=== PATIENT | female | born 1940 | race Caucasian/White ===

== ENCOUNTER 2018-09-13 14:45 | Inpatient (IN) | payer MEDICARE | END 2018-09-17 16:20 | disposition home or self-care (01) | LOC: ER 14:45 → ORTHO 4S 09-16 09:50 → ED HOLD 20:14 | DX: J44.1 Chronic obstructive pulmonary disease with (acute) exacerbation (principal); I13.0 Hypertensive heart and chronic kidney disease with heart failure and stage 1 through stage 4 chronic kidney disease, or unspecified chronic kidney disease ==

== ENCOUNTER 2018-09-25 15:59 | Inpatient (IN) | payer MEDICARE | END 2018-10-08 15:25 | LOC: ED HOLD 09-26 14:34 → ORTHO 4S 09-30 10:15 → PCU 3S 10-02 16:40 → ER 15:59 → ORTHO 4S 09-26 14:54 → PCU 3S 10-03 21:15 | DX: A41.9 Sepsis, unspecified organism (principal); J18.9 Pneumonia, unspecified organism; J44.1 Chronic obstructive pulmonary disease with (acute) exacerbation; N17.9 Acute kidney failure, unspecified; J20.9 Acute bronchitis, unspecified; Z72.0 Tobacco use; I12.9 Hypertensive chronic kidney disease with stage 1 through stage 4 chronic kidney disease, or unspecified chronic kidney disease; N18.3 Chronic kidney disease, stage 3 (moderate) ==

== ENCOUNTER 2018-10-14 20:24 | Inpatient (IN) | payer MEDICARE ==
[~2018-10-14] VITALS: Ht 157.5 cm; Wt 54.5 kg
[~2018-10-14 20:24] MED LIST: ALPR0.5T9 PO; BENZ-49 PO; DILT30TA5 PO; HYDR-3973 PO; MEGE400O2 PO; NICO-631 TD; PRED10TA23 PO; SERT50TA10 PO; TIOT18CA3
[2018-10-14] MEDS ORDERED: piperacillin/tazo 4.5gm/100ml 100 ML IV SCH (21:10)
[2018-10-14] MEDS ORDERED: vancomycin/NS 1 GM ADD-VANTAGE 250 ML IV ONE (21:10)
[2018-10-14] MEDS ORDERED: piperacillin/tazo 4.5gm/100ml 100 ML IV ONE (21:14)
[2018-10-14 21:37] LABS: BASOPHILS # (AUTO) 0.1 X10'3 (0-0.2); BASOPHILS % (AUTO) 0.5 % (0-1); EOSINOPHILS % (AUTO) 0.1 % (0-6); HEMATOCRIT 31.5 % (35.0-45.0); HEMOGLOBIN 10.3 g/dl (12.0-16.0); LYMPHOCYTES # (AUTO) 0.2 X10'3 (1.1-4.8); LYMPHOCYTES % (AUTO) 1.8 % (21-51); MEAN CORPUSCULAR HEMOGLOBIN 25.5 PG (27.0-31.0); MEAN CORPUSCULAR HGB CONC 32.6 g/dL (33.0-36.5); MEAN CORPUSCULAR VOLUME 78.1 FL (78-98); MEAN PLATELET VOLUME 7.7 FL (7.4-10.4); MONOCYTES # (AUTO) 0.4 X10'3 (0-0.9); MONOCYTES % (AUTO) 3.1 % (2-12); NEUTROPHILS # (AUTO) 12.7 X10'3 (1.8-7.7); NEUTROPHILS % (AUTO) 94.5 % (42-75); PLATELET COUNT 247 X10'3 (140-440); RED BLOOD COUNT 4.04 X10'6 (4.20-5.60); RED CELL DISTRIBUTION WIDTH 17.4 % (11.5-14.5); WHITE BLOOD COUNT 13.4 X10'3 (4.5-11.0)
[2018-10-14 21:46] LABS: ALANINE AMINOTRANSFERASE 26 U/L (12-78); ALBUMIN 1.9 G/DL (3.4-5.0); ALBUMIN/GLOBULIN RATIO 0.4 (1.1-1.5); ALKALINE PHOSPHATASE 79 IU/L (46-116); ANION GAP 7 (8-16); ASPARTATE AMINO TRANSFERASE 16 U/L (10-37); BILIRUBIN,TOTAL 0.2 MG/DL (0.1-1.0); BLOOD UREA NITROGEN 57 MG/DL (7-18); BUN/CREATININE RATIO 14.3 (6.6-38.0); CALCIUM 8.8 MG/DL (8.5-10.1); CHLORIDE 100 MMOL/L (99-107); CREATININE 3.99 MG/DL (0.40-0.90); GLUCOSE 106 MG/DL (70-104); POTASSIUM 5.2 MMOL/L (3.5-5.1); SODIUM 136 MMOL/L (135-145); TOTAL CARBON DIOXIDE 29.1 MMOL/L (24-32); TOTAL PROTEIN 6.3 G/DL (6.4-8.2); eGFR 11 ML/MIN
[2018-10-14 21:52] LABS: PARTIAL THROMBOPLASTIN TIME 35 SECONDS (22-32)
[2018-10-14] MEDS ORDERED: sodium polystyrene sulfonate 15gm/60ml oral suspension PO ONE (21:55)
[2018-10-14] MEDS ORDERED: normal saline 1000ML IV soln IVB ONE (21:55)
[2018-10-14 23:06] LABS: ABG BASE EXCESS 2.2 mmol/L (-2.0-3.0); ABG HCO3 27.5 mmol/L (22.0-26.0); ABG OXYGEN SATURATION 94.3 % (95-98); ABG PCO2 (T) 45.8 mmHg (32.0-45.0); ABG PH (T) 7.395 (7.350-7.450); ABG PO2 (T) 74.3 mmHg (83-108); ALLEN'S TEST Positive; FCOHb 0.3 % (0.5-1.5); FLOW 3 L/min; FMetHb 0.1 % (0.3-1.12); FO2Hb 93.9 % (94-100); PATIENT TEMPERATURE 36.8; RESPIRATORY RATE (OBSERVED) 16 b/min; TOTAL HEMOGLOBIN 9.5 G/dl (12.0-16.0)
[2018-10-14] MEDS ORDERED: DOXY100T19 PO (23:20)
[2018-10-14] MEDS ORDERED: METH-603 PO (23:20)
[2018-10-14] MEDS ORDERED: AMLO5TAB16 PO (23:20)
[2018-10-15] MEDS ORDERED: benzonatate 100mg capsule PO PRN (00:10)
[2018-10-15] MEDS ORDERED: ondansetron/PF 4mg/2ml inj IV PRN (00:15)
[2018-10-15] MEDS ORDERED: docusate sod 100mg capsule PO PRN (00:15)
[2018-10-15] MEDS ORDERED: magnesium Cl slow-release 64mg tablet PO PRN (00:15)
[2018-10-15] MEDS ORDERED: HYDROmorphone 1 mg/ml syringe IV PRN (00:15)
[2018-10-15] MEDS ORDERED: potassium Cl 40MEQ/NS 500ml 500 ML IV PRN ×2 (00:15)
[2018-10-15] MEDS ORDERED: acetaminophen 325mg tablet PO PRN (00:15)
[2018-10-15] MEDS ORDERED: HYDROmorphone inj. 0.5 MG/0.5 ML DISP.SYRIN IV PRN (00:15)
[2018-10-15] MEDS ORDERED: magnesium 4gm in 100ml NS 100 ML IV PRN (00:15)
[2018-10-15] MEDS ORDERED: cefepime 1GM/NS ADD-VANTAGE 100 ML IV SCH (00:15)
[2018-10-15] MEDS ORDERED: potassium Cl 20 mEq SR tablet PO PRN ×2 (00:15)
[2018-10-15] MEDS ORDERED: magnesium 2GM in 50ml NS 50 ML IV PRN (00:15)
[2018-10-15] MEDS ORDERED: mag hydrox/Alum hydrox/simeth 30ml oral suspension PO PRN (00:15)
--- NOTE | 2018-10-15 00:20 | NUR ---
PT NOT TOLERATING OXY MASK, PLACED PT ON NASAL CANULA AT 6 LPM, WILL CONTINUE TO MONITOR O2 LEVELS AND REAPPLY MASK NEEDED.
[2018-10-15] MEDS ORDERED: morphine 4 MG/ML inj SYRINge IV PRN (01:00)
--- NOTE | 2018-10-15 01:20 | NUR ---
Patient in room [facility]. I have received report from Vince Carver and had the opportunity to ask questions and will assume patient care upon arrival to the floor. Addendum: 10/15/18 at 0245 by Carrie Velazquez RN Amended: Links added.
--- NOTE | 2018-10-15 01:24 | NUR ---
REPORT CALLED TO RADAMES RN, I REVIEWED THE PATIENTS CONDITION, SHE AGREES TO ACCEPT THE PATIENT. PATIENT AND FAMILY MEMBER TO GO UPSTAIRS WITH THE PATIENT AFTER SHE RETURNS FROM CT.
[2018-10-15 02:00] VITALS: BP 125/67
--- NOTE | 2018-10-15 02:00 | NUR ---
pt arrived to the floor and clothes removed put into a gown and colostomy burped and positioned to comfort.
--- NOTE | 2018-10-15 02:52 | NUR ---
pt resting eyes closed without changes.
--- NOTE | 2018-10-15 04:10 | NUR ---
Dr Alcantar up to talk to daughter about noting a bowel obstruction on her ct and need for ng tube. Daughter told him she wanted to wait until sheb could talk with her Dad regarding this as her Mom is taking on off and not wanting stuff done. tele dc'd
--- NOTE | 2018-10-15 05:15 | NUR ---
pt denied need for pain medication at this time. daughter called her father said he would come in to decide on the ng tube and what pt wants for her care.
[2018-10-15] MEDS: HYDROcodone/acetaminophen 10/325mg tab PO SCH ×6 (06:00→23:58)
--- NOTE | 2018-10-15 06:30 | NUR ---
PT & DAUGHTER SAID SHE WAS IN PAIN. SHE WANTED THE MORPHINE MEDICATED FOR THIS . THEN CAME IN AND HEARD WHAT DR SINCLAIR HAD SAID ABOUT BOWEL OBSTRUCTION NEEDING AN NG TUBE. & PT STATING SHE DID NOT WANT THAT AND TAKING THE 02 OFF. AND DAUGHTER BOTH HAVE STATED THEY WOULD LIKE TO TAKE TO THE DR ABOUT KEEPING HER COMFORTABLE.
--- NOTE | 2018-10-15 06:30 | NUR ---
Patient in room [facility]. I have received report from Carrie and had the opportunity to ask questions and assume patient care. Addendum: 10/15/18 at 1315 by Brittany Guan RN Amended: Links added.
--- NOTE | 2018-10-15 07:01 | NUR ---
Problems reprioritized. Patient report given, questions answered & plan of care reviewed with MARGOT RICARDO AND SHE IS AWARE PT REFUSED VITALS AT THIS TIME. AND FAMILY WOULD LIKE TALK WITH THE DR ABOUT KEEPING HER COMFORTABLE. .
[2018-10-15] MEDS: ipratropium 0.5 MG/2.5ML nebule IH SCH ×4 (07:07→20:24)
[2018-10-15] MEDS: levalbuterol 0.63mg/3ml nebule IH SCH ×4 (07:07→20:24)
[2018-10-15] MEDS: megestrol acetate 400mg/10ml UD oral suspension PO SCH (08:00)
[2018-10-15] MEDS: enoxaparin 30mg/0.3ml syringe SQ SCH (08:00)
[2018-10-15] MEDS ORDERED: methadone 10mg tablet PO SCH (08:00)
[2018-10-15] MEDS: K and/or MAG REPLACEMENT MC SCH (08:08)
[2018-10-15] MEDS: methylPREDNISolone sod succ 125mg/2ml vial IV SCH ×2 (08:15→17:10)
[2018-10-15 08:19] VITALS: BP 132/79
[2018-10-15] MEDS: sertraline 50mg tablet PO SCH (08:45)
[2018-10-15] MEDS: nicotine 14mg patch - 24hr TD SCH (08:46)
[2018-10-15] MEDS: diltiazem 30mg tablet PO SCH ×2 (08:46→20:14)
[2018-10-15] MEDS: amLODIPine 5mg tablet PO SCH (08:46)
[2018-10-15 09:53] LABS: VANCOMYCIN,RANDOM 19.7 UG/ML
[2018-10-15] MEDS: normal saline 1000ml 1,000 ML IV SCH (11:27)
[2018-10-15 12:00] VITALS: BP 116/56
--- NOTE | 2018-10-15 12:04 | NUR ---
Yun catheter ordered. Nursing students and I went to place yun using sterile technique. First attempt not successful. Second attempt was succesful. Patient had several hundred mL of urine, which turned bloody about skilled nursing through draining. DAVION Soto notified.
[2018-10-15] MEDS ORDERED: lactose-reduced food (Ensure Enlive) - 237ml bottle PO SCH (13:00)
--- NOTE | 2018-10-15 15:33 | NUR ---
F/u: Pt admit w/ FTT hx recent admit w/ SBO and colectomy w/ colostomy. Pt low PO and low intake in rehab per MD note. Pt currently AOx2 w/ UTI, possible hospital acquire PNA. CT reveals lung nodule as well as possible bowel obstruction from dilated small bowel loops. Pt having soft formed stool today per RN. Per RN pt NO calorie count and per MD today if pt does not improve next 24-48hours will be made comfort care following family discussion. Pt andrea 12 w/ no edema/wounds. Ensure Enlive TIDWM added for additional protein/kcal needs; MD notified. Pt wt has not changed since d/c 10/08 but current is pt stated and will need scaled wt if remains DNR. Pt refusing megace today. Will continue to monitor. Malnutrition and calorie count consult. Pending PO documentation. LBM today was small, liquid stool. Documented weight is patient stated of 120 lbs. Weight on 10/08/18 documented as 121 lbs. Weight from two years ago two years ago. Patient has megace on med list for appetite stimulant. Rec: 1. advance to regular diet per MD 2. ensure enlive TIDWM 3. encourage PO 4. monitor for changes in code status 5. scaled wt for accurate wt hx Addendum: 10/15/18 at [address] Amended: Links added.
--- NOTE | 2018-10-15 18:16 | NUR ---
Problems reprioritized. Patient report given, questions answered & plan of care reviewed with Eunice. Addendum: 10/15/18 at 1817 by Brittany Guan RN Amended: Links added.
[2018-10-15 19:00] VITALS: BP 110/52
[2018-10-15] MEDS: lactobacillus rhamnosus 10,000 MMU CELLS/CAPSULE PO SCH (20:14)
[2018-10-15] MEDS: cefepime inj. 0.5 GM in normal saline 100ml IV soln 100 ML IV SCH (21:00)
[2018-10-16] VITALS: BP 126/54
[2018-10-16] MEDS: methylPREDNISolone sod succ 125mg/2ml vial IV SCH ×3 (00:04→16:37)
[2018-10-16] MEDS: levalbuterol 0.63mg/3ml nebule IH SCH ×6 (00:44→23:44)
[2018-10-16] MEDS: ipratropium 0.5 MG/2.5ML nebule IH SCH ×6 (00:44→23:44)
[2018-10-16] MEDS: VANCOMYCIN LEVEL IV SCH (03:00)
--- NOTE | 2018-10-16 05:09 | NUR ---
Pt daughter refusing labs for patient. States she does not get enough sleep and said labs can be drawn later. Re-timed by lab to 0800.
[2018-10-16] MEDS ORDERED: vancomycin/NS 1 GM ADD-VANTAGE 250 ML IV PRN (06:00)
--- NOTE | 2018-10-16 06:39 | NUR ---
Problems reprioritized. Patient report given, questions answered & plan of care reviewed with DAVION Jensen.
[2018-10-16 07:08] VITALS: BP 111/50
[2018-10-16] MEDS: HYDROcodone/acetaminophen 10/325mg tab PO SCH ×6 (07:57→22:00)
[2018-10-16] MEDS: lactobacillus rhamnosus 10,000 MMU CELLS/CAPSULE PO SCH ×2 (07:57→21:17)
[2018-10-16] MEDS: diltiazem 30mg tablet PO SCH ×2 (07:57→21:17)
[2018-10-16] MEDS: amLODIPine 5mg tablet PO SCH (07:57)
[2018-10-16] MEDS: sertraline 50mg tablet PO SCH (07:57)
[2018-10-16] MEDS: nicotine 14mg patch - 24hr TD SCH (07:58)
[2018-10-16] MEDS: enoxaparin 30mg/0.3ml syringe SQ SCH (08:00)
[2018-10-16] MEDS: K and/or MAG REPLACEMENT MC SCH (08:00)
[2018-10-16] MEDS: megestrol acetate 400mg/10ml UD oral suspension PO SCH (08:03)
[2018-10-16 08:58] LABS: BASOPHILS % (AUTO) 0.3 % (0-1); EOSINOPHILS % (AUTO) 0 % (0-6); HEMATOCRIT 24.4 % (35.0-45.0); HEMOGLOBIN 8.1 g/dl (12.0-16.0); LYMPHOCYTES # (AUTO) 0.2 X10'3 (1.1-4.8); LYMPHOCYTES % (AUTO) 1.7 % (21-51); MEAN CORPUSCULAR HEMOGLOBIN 25.9 PG (27.0-31.0); MEAN CORPUSCULAR HGB CONC 33.2 g/dL (33.0-36.5); MEAN CORPUSCULAR VOLUME 77.9 FL (78-98); MONOCYTES # (AUTO) 0.1 X10'3 (0-0.9); PLATELET COUNT 213 X10'3 (140-440); RED BLOOD COUNT 3.13 X10'6 (4.20-5.60); RED CELL DISTRIBUTION WIDTH 18.2 % (11.5-14.5); WHITE BLOOD COUNT 11.3 X10'3 (4.5-11.0)
[2018-10-16 09:22] LABS: ALANINE AMINOTRANSFERASE 20 U/L (12-78); ALBUMIN 1.4 G/DL (3.4-5.0); ALBUMIN/GLOBULIN RATIO 0.4 (1.1-1.5); ALKALINE PHOSPHATASE 63 IU/L (46-116); ANION GAP 9 (8-16); ASPARTATE AMINO TRANSFERASE 11 U/L (10-37); BILIRUBIN,TOTAL 0.1 MG/DL (0.1-1.0); BLOOD UREA NITROGEN 56 MG/DL (7-18); BUN/CREATININE RATIO 18.8 (6.6-38.0); CALCIUM 8.1 MG/DL (8.5-10.1); CHLORIDE 106 MMOL/L (99-107); CREATININE 2.98 MG/DL (0.40-0.90); GLUCOSE 200 MG/DL (70-104); MAGNESIUM 1.5 MG/DL (1.5-2.4); POTASSIUM 4.1 MMOL/L (3.5-5.1); SODIUM 144 MMOL/L (135-145); TOTAL CARBON DIOXIDE 28.6 MMOL/L (24-32); TOTAL PROTEIN 5.2 G/DL (6.4-8.2); VANCOMYCIN,RANDOM 11.9 UG/ML; eGFR 15 ML/MIN
[2018-10-16] MEDS ORDERED: vancomycin/NS 1 GM ADD-VANTAGE 250 ML IV ONE (09:35)
[2018-10-16 11:24] VITALS: BP 114/50
--- NOTE | 2018-10-16 12:13 | NUR ---
Patient in room [facility]. I have received report from ISABELLA RICARDO AND LUZ RICARDO and had the opportunity to ask questions and assume patient care.
[2018-10-16] MEDS: lactose-reduced food (Ensure Enlive) - 237ml bottle PO SCH ×2 (13:00→18:00)
[2018-10-16 14:10] LABS: CLARITY,URINE CLOUDY (Clear); COLOR,URINE YELLOW (Yellow); GLUCOSE, URINE NEGATIVE (Neg); KETONES,URINE NEGATIVE (Neg); LEUKOCYTE ESTERASE ,URINE MODERATE (Neg); NITRITES, URINE NEGATIVE (Neg); OCCULT BLOOD,URINE LARGE (Neg); PH,URINE 5.5 (4.8-8.0); PROTEIN,URINE 30 mg/dl (Neg); UROBILINOGEN,URINE 0.2 E.U/dL (0.2-1.0)
[2018-10-16 14:15] LABS: SQUAMOUS EPITHELIAL CELL,UR FEW /LPF (FEW); UA COLLECTION TYPE FOLEY CATH
[2018-10-16 14:16] LABS: BACTERIA,URINE 2+ /HPF (Neg); RBC,URINE TNTC /HPF (0-2); WBC,URINE TNTC /HPF (0-4)
[2018-10-16] MEDS: normal saline 1000ml 1,000 ML IV SCH ×2 (15:06)
--- NOTE | 2018-10-16 17:01 | NUR ---
Patient has field start IV that is patent. Patient refusing to have another IV started. Dr. Dilshad velasquez MD stated okay to leave field start tonight and to have Maria RICARDO start IV tomorrow.
--- NOTE | 2018-10-16 18:34 | NUR ---
Problems reprioritized. Patient report given, questions answered & plan of care reviewed with Giselle RICARDO and Shayla RICARDO.
--- NOTE | 2018-10-16 18:37 | NUR ---
Patient in room [facility]. I have received report from Camila RICARDO and had the opportunity to ask questions and assume patient care with Giselle RICARDO. Patient family members are in the room with the patient.
[2018-10-16 19:00] VITALS: BP 141/71
--- NOTE | 2018-10-16 22:30 | NUR ---
Patient initially refused the 1800 dose for Isabella but later stated that she wanted pain meds. Meds given around 1840. Scheduled Isabella at 2200 not given, patient denied having pain.
[2018-10-16] MEDS: cefepime inj. 0.5 GM in normal saline 100ml IV soln 100 ML IV SCH (22:31)
[2018-10-17] VITALS: BP 138/63
[2018-10-17] MEDS: methylPREDNISolone sod succ 125mg/2ml vial IV SCH ×3 (00:11→20:23)
[2018-10-17] MEDS: normal saline 1000ml 1,000 ML IV SCH ×2 (01:05→11:57)
[2018-10-17] MEDS: VANCOMYCIN LEVEL IV SCH (03:00)
[2018-10-17] MEDS: HYDROcodone/acetaminophen 10/325mg tab PO SCH (05:02)
[2018-10-17 06:48] VITALS: BP 151/76
[2018-10-17] MEDS: nicotine 14mg patch - 24hr TD SCH (07:08)
[2018-10-17] MEDS: lactobacillus rhamnosus 10,000 MMU CELLS/CAPSULE PO SCH ×2 (07:08→20:23)
[2018-10-17] MEDS: enoxaparin 30mg/0.3ml syringe SQ SCH (07:09)
[2018-10-17] MEDS: diltiazem 30mg tablet PO SCH ×2 (07:09→20:24)
[2018-10-17] MEDS: sertraline 50mg tablet PO SCH (07:10)
[2018-10-17] MEDS: amLODIPine 5mg tablet PO SCH (07:10)
[2018-10-17] MEDS: ipratropium 0.5 MG/2.5ML nebule IH SCH ×5 (07:17→23:32)
[2018-10-17] MEDS: levalbuterol 0.63mg/3ml nebule IH SCH ×5 (07:17→23:32)
[2018-10-17] MEDS: megestrol acetate 400mg/10ml UD oral suspension PO SCH (07:18)
[2018-10-17] MEDS: K and/or MAG REPLACEMENT MC SCH (08:00)
[2018-10-17] MEDS: lactose-reduced food (Ensure Enlive) - 237ml bottle PO SCH ×4 (08:11→19:37)
[2018-10-17] MEDS ORDERED: HYDROcodone/acetaminophen 10/325mg tab PO PRN (09:30)
[2018-10-17 10:00] VITALS: BP 128/59
--- NOTE | 2018-10-17 10:13 | NUR ---
Reassessment: SOB improving and pt eating better per MD notes. Patient's diet has been changed to mechanical soft and pt documented with 75% PO intake of meals with 25% PO intake of Ensure Enlive TID likely meeting nutrient needs. Pt receptive to Megace now. LBM 5/8 with 200 mL stool output per I&O. Pt with no edema or wounds. Pt currently does not meet criteria for malnutrition. Will continue to follow. Rec: 1. Continue mechanical soft diet 2. ensure enlive TIDWM 3. encourage PO 4. monitor for changes in code status 5. scaled wt for accurate wt hx Addendum: 10/17/18 at [address] Amended: Links added.
[2018-10-17 11:08] LABS: BASOPHILS % (AUTO) 0.1 % (0-1); EOSINOPHILS % (AUTO) 0 % (0-6); HEMATOCRIT 25.7 % (35.0-45.0); HEMOGLOBIN 8.2 g/dl (12.0-16.0); LYMPHOCYTES # (AUTO) 0.1 X10'3 (1.1-4.8); LYMPHOCYTES % (AUTO) 1.1 % (21-51); MEAN CORPUSCULAR HEMOGLOBIN 25.5 PG (27.0-31.0); MEAN CORPUSCULAR HGB CONC 32.1 g/dL (33.0-36.5); MEAN CORPUSCULAR VOLUME 79.6 FL (78-98); MEAN PLATELET VOLUME 7.7 FL (7.4-10.4); MONOCYTES # (AUTO) 0.3 X10'3 (0-0.9); NEUTROPHILS # (AUTO) 12.5 X10'3 (1.8-7.7); NEUTROPHILS % (AUTO) 96.8 % (42-75); PLATELET COUNT 231 X10'3 (140-440); RED BLOOD COUNT 3.23 X10'6 (4.20-5.60); RED CELL DISTRIBUTION WIDTH 18.3 % (11.5-14.5); WHITE BLOOD COUNT 12.9 X10'3 (4.5-11.0)
[2018-10-17 11:20] LABS: ALANINE AMINOTRANSFERASE 22 U/L (12-78); ALBUMIN 1.6 G/DL (3.4-5.0); ALBUMIN/GLOBULIN RATIO 0.4 (1.1-1.5); ALKALINE PHOSPHATASE 72 IU/L (46-116); ANION GAP 12 (8-16); ASPARTATE AMINO TRANSFERASE 15 U/L (10-37); BILIRUBIN,TOTAL 0.1 MG/DL (0.1-1.0); BLOOD UREA NITROGEN 60 MG/DL (7-18); BUN/CREATININE RATIO 28.7 (6.6-38.0); CALCIUM 8.4 MG/DL (8.5-10.1); CHLORIDE 110 MMOL/L (99-107); CREATININE 2.09 MG/DL (0.40-0.90); GLUCOSE 172 MG/DL (70-104); MAGNESIUM 1.4 MG/DL (1.5-2.4); POTASSIUM 3.5 MMOL/L (3.5-5.1); SODIUM 148 MMOL/L (135-145); TOTAL CARBON DIOXIDE 26.3 MMOL/L (24-32); TOTAL PROTEIN 5.5 G/DL (6.4-8.2); VANCOMYCIN,RANDOM 18.5 UG/ML; eGFR 23 ML/MIN
[2018-10-17] MEDS: potassium cl 20mEq in 1/2 NS 1,000 ML IV SCH (15:43)
--- NOTE | 2018-10-17 16:05 | NUR ---
Daughter and pt educated on need for low sodium, hh diet to be followed more strictly, family brings in food often. They state they understand. Daughter says she will make sure any foods brought in are low sodium and caffeine free.
--- NOTE | 2018-10-17 18:41 | NUR ---
Problems reprioritized. Patient report given, questions answered & plan of care reviewed with Christelle and Shayla RN's. Pt awake in bed, still some confusion but no signs of distress. family at bedside.
--- NOTE | 2018-10-17 18:44 | NUR ---
Received report from Pretty RICARDO pt is awake, family at bedside, call light and items of freq use within reach.
[2018-10-17 19:00] VITALS: BP 155/69
--- NOTE | 2018-10-17 19:00 | NUR ---
Patient in room [facility]. I have received report from Pretty RICARDO and had the opportunity to ask questions and assume patient care with Jocelyn RICARDO.
[2018-10-17] MEDS: morphine 4 MG/ML inj SYRINge IV PRN (19:01)
[2018-10-17] MEDS: diatr meglu/diatrizoate 30ml oral sol.-(3 dose) bottle PO SCH (21:31)
[2018-10-17] MEDS: cefepime inj. 0.5 GM in normal saline 100ml IV soln 100 ML IV SCH (21:32)
[2018-10-18] VITALS: BP 153/79
[2018-10-18] MEDS: LORazepam 2 mg/ml vial IV PRN ×2 (02:34→20:44)
[2018-10-18] MEDS: VANCOMYCIN LEVEL IV SCH (03:00)
[2018-10-18] MEDS: potassium cl 20mEq in 1/2 NS 1,000 ML IV SCH (03:21)
[2018-10-18] MEDS: morphine 4 MG/ML inj SYRINge IV PRN ×2 (03:21→23:58)
--- NOTE | 2018-10-18 05:39 | NUR ---
reviewed Prudence RN charting and observed care, agreed with assessments and interventions.
--- NOTE | 2018-10-18 06:28 | NUR ---
GAVE REPORT TO MAGO RICARDO WITH PRUDENCE RN pt family member at bedside, on 5L of o2 via NC, bed alarm on
[2018-10-18 07:00] VITALS: BP 153/80
[2018-10-18] MEDS: levalbuterol 0.63mg/3ml nebule IH SCH ×5 (07:56→23:00)
[2018-10-18] MEDS: ipratropium 0.5 MG/2.5ML nebule IH SCH ×5 (07:56→23:00)
[2018-10-18] MEDS: K and/or MAG REPLACEMENT MC SCH (08:00)
[2018-10-18] MEDS: diatr meglu/diatrizoate 30ml oral sol.-(3 dose) bottle PO SCH ×2 (08:00→11:13)
[2018-10-18 09:01] LABS: BASOPHILS % (AUTO) 0.1 % (0-1); EOSINOPHILS % (AUTO) 0 % (0-6); HEMATOCRIT 24.8 % (35.0-45.0); HEMOGLOBIN 8.1 g/dl (12.0-16.0); LYMPHOCYTES # (AUTO) 0.2 X10'3 (1.1-4.8); LYMPHOCYTES % (AUTO) 2.2 % (21-51); MEAN CORPUSCULAR HEMOGLOBIN 25.7 PG (27.0-31.0); MEAN CORPUSCULAR HGB CONC 32.8 g/dL (33.0-36.5); MEAN CORPUSCULAR VOLUME 78.5 FL (78-98); MEAN PLATELET VOLUME 7.8 FL (7.4-10.4); MONOCYTES # (AUTO) 0.2 X10'3 (0-0.9); MONOCYTES % (AUTO) 1.8 % (2-12); NEUTROPHILS # (AUTO) 9.8 X10'3 (1.8-7.7); NEUTROPHILS % (AUTO) 95.9 % (42-75); PLATELET COUNT 221 X10'3 (140-440); RED BLOOD COUNT 3.16 X10'6 (4.20-5.60); RED CELL DISTRIBUTION WIDTH 17.9 % (11.5-14.5); WHITE BLOOD COUNT 10.2 X10'3 (4.5-11.0)
[2018-10-18 09:14] LABS: ALBUMIN 1.6 G/DL (3.4-5.0); ALBUMIN/GLOBULIN RATIO 0.4 (1.1-1.5); ALKALINE PHOSPHATASE 85 IU/L (46-116); ANION GAP 9 (8-16); ASPARTATE AMINO TRANSFERASE 17 U/L (10-37); BILIRUBIN,TOTAL 0.2 MG/DL (0.1-1.0); BLOOD UREA NITROGEN 56 MG/DL (7-18); CALCIUM 8.2 MG/DL (8.5-10.1); CHLORIDE 110 MMOL/L (99-107); CREATININE 1.75 MG/DL (0.40-0.90); GLUCOSE 119 MG/DL (70-104); MAGNESIUM 2.4 MG/DL (1.5-2.4); POTASSIUM 4.5 MMOL/L (3.5-5.1); SODIUM 145 MMOL/L (135-145); TOTAL CARBON DIOXIDE 26.4 MMOL/L (24-32); TOTAL PROTEIN 5.2 G/DL (6.4-8.2); VANCOMYCIN,RANDOM 13.8 UG/ML; eGFR 28 ML/MIN
[2018-10-18 09:24] LABS: ALANINE AMINOTRANSFERASE 23 U/L (12-78)
[2018-10-18 09:35] LABS: TOTAL CELLS COUNTED 100
[2018-10-18 09:36] LABS: ANISOCYTOSIS 1+; HYPOCHROMASIA 1+; MICROCYTOSIS 1+; PLATELET ESTIMATE NORMAL; POLYCHROMASIA 1+; TOXIC GRANULATION 1+
[2018-10-18] MEDS: nicotine 14mg patch - 24hr TD SCH (09:50)
[2018-10-18] MEDS: methylPREDNISolone sod succ 125mg/2ml vial IV SCH (09:50)
[2018-10-18] MEDS: sertraline 50mg tablet PO SCH (09:51)
[2018-10-18] MEDS: heparin, porcine 5000 units/ml vial SQ SCH ×2 (09:51→19:28)
[2018-10-18] MEDS: amLODIPine 5mg tablet PO SCH (09:51)
[2018-10-18] MEDS: lactobacillus rhamnosus 10,000 MMU CELLS/CAPSULE PO SCH ×2 (09:51→19:26)
[2018-10-18] MEDS: diltiazem 30mg tablet PO SCH ×2 (09:51→19:26)
[2018-10-18] MEDS: megestrol acetate 400mg/10ml UD oral suspension PO SCH (09:53)
[2018-10-18] MEDS ORDERED: HYDROcodone/acetaminophen 5mg/325mg tablet PO PRN (10:40)
[2018-10-18] MEDS: sodium chloride 0.45% 1,000 ML IV SCH (10:51)
[2018-10-18 11:00] VITALS: BP 160/79
[2018-10-18] MEDS: lactose-reduced food (Ensure Enlive) - 237ml bottle PO SCH ×2 (13:00→18:00)
--- NOTE | 2018-10-18 18:30 | NUR ---
Patient in room [facility]. I have received report from Susana RICARDO and had the opportunity to ask questions and assume patient care. Vikci present at bedside Addendum: 10/18/18 at 2144 by Jeovany Simon RN Correction. Pt is in room 359A
[2018-10-18] MEDS: methylPREDNISolone sod succ/PF 40mg inj. IV SCH (19:27)
[2018-10-18 20:00] VITALS: BP 145/76
[2018-10-18] MEDS: cefepime inj. 0.5 GM in normal saline 100ml IV soln 100 ML IV SCH (20:44)
[2018-10-18] MEDS: nystatin 500,000 unit/5ML UD oral suspension PO SCH (22:09)
[2018-10-19] VITALS: BP 158/82
[2018-10-19] MEDS: sodium chloride 0.45% 1,000 ML IV SCH ×2 (00:58→08:12)
--- NOTE | 2018-10-19 06:37 | NUR ---
Problems reprioritized. Patient report given, questions answered & plan of care reviewed with JESUS RICARDO. SITTER AT BEDSIDE, BED ALARM IS ON. PT IS SLEEPING ON RIGHT SIDE, RESPIRATIONS EVEN AND UNLABORED. O2 BY NC ON.
[2018-10-19 06:42] LABS: BASOPHILS % (AUTO) 0 % (0-1); EOSINOPHILS % (AUTO) 0 % (0-6); HEMATOCRIT 24.4 % (35.0-45.0); HEMOGLOBIN 8.1 g/dl (12.0-16.0); LYMPHOCYTES # (AUTO) 0.2 X10'3 (1.1-4.8); LYMPHOCYTES % (AUTO) 2.5 % (21-51); MEAN CORPUSCULAR HEMOGLOBIN 25.6 PG (27.0-31.0); MEAN CORPUSCULAR HGB CONC 33.1 g/dL (33.0-36.5); MEAN CORPUSCULAR VOLUME 77.2 FL (78-98); MEAN PLATELET VOLUME 7.7 FL (7.4-10.4); MONOCYTES # (AUTO) 0.1 X10'3 (0-0.9); MONOCYTES % (AUTO) 1.5 % (2-12); NEUTROPHILS # (AUTO) 8.4 X10'3 (1.8-7.7); PLATELET COUNT 208 X10'3 (140-440); RED BLOOD COUNT 3.15 X10'6 (4.20-5.60); RED CELL DISTRIBUTION WIDTH 17.5 % (11.5-14.5); WHITE BLOOD COUNT 8.7 X10'3 (4.5-11.0)
[2018-10-19 07:10] LABS: ALANINE AMINOTRANSFERASE 23 U/L (12-78); ALBUMIN 1.6 G/DL (3.4-5.0); ALBUMIN/GLOBULIN RATIO 0.5 (1.1-1.5); ALKALINE PHOSPHATASE 81 IU/L (46-116); ANION GAP 8 (8-16); ASPARTATE AMINO TRANSFERASE 17 U/L (10-37); BILIRUBIN,TOTAL 0.2 MG/DL (0.1-1.0); BLOOD UREA NITROGEN 54 MG/DL (7-18); BUN/CREATININE RATIO 35.3 (6.6-38.0); CALCIUM 8.4 MG/DL (8.5-10.1); CHLORIDE 111 MMOL/L (99-107); CREATININE 1.53 MG/DL (0.40-0.90); GLUCOSE 115 MG/DL (70-104); MAGNESIUM 1.9 MG/DL (1.5-2.4); POTASSIUM 4.3 MMOL/L (3.5-5.1); SODIUM 144 MMOL/L (135-145); TOTAL CARBON DIOXIDE 25.1 MMOL/L (24-32); TOTAL PROTEIN 4.9 G/DL (6.4-8.2); eGFR 33 ML/MIN
[2018-10-19 07:15] VITALS: BP 148/75
[2018-10-19 07:19] LABS: ANISOCYTOSIS 1+; MICROCYTOSIS 1+; PLATELET ESTIMATE NORMAL; TOTAL CELLS COUNTED 100
[2018-10-19 07:20] LABS: POLYCHROMASIA FEW; STOMATOCYTES 1+; TOXIC GRANULATION 1+
[2018-10-19] MEDS: ipratropium 0.5 MG/2.5ML nebule IH SCH ×2 (08:00→11:00)
[2018-10-19] MEDS: levalbuterol 0.63mg/3ml nebule IH SCH ×2 (08:00→11:00)
[2018-10-19] MEDS: K and/or MAG REPLACEMENT MC SCH (08:00)
[2018-10-19] MEDS: megestrol acetate 400mg/10ml UD oral suspension PO SCH (08:10)
[2018-10-19] MEDS: lactobacillus rhamnosus 10,000 MMU CELLS/CAPSULE PO SCH ×2 (08:11→20:58)
[2018-10-19] MEDS: diltiazem 30mg tablet PO SCH ×2 (08:11→20:58)
[2018-10-19] MEDS: methylPREDNISolone sod succ/PF 40mg inj. IV SCH (08:11)
[2018-10-19] MEDS: sertraline 50mg tablet PO SCH (08:11)
[2018-10-19] MEDS: nicotine 14mg patch - 24hr TD SCH (08:11)
[2018-10-19] MEDS: nystatin 500,000 unit/5ML UD oral suspension PO SCH ×3 (08:14→20:58)
[2018-10-19] MEDS: lactose-reduced food (Ensure Enlive) - 237ml bottle PO SCH ×3 (08:38→18:05)
[2018-10-19 11:00] VITALS: BP 148/75
[2018-10-19] MEDS: morphine 4 MG/ML inj SYRINge IV PRN ×2 (11:08→22:06)
[2018-10-19 11:11] VITALS: BP 147/78
[2018-10-19] MEDS ORDERED: levalbuterol 0.63mg/3ml nebule IH PRN (13:30)
[2018-10-19] MEDS ORDERED: ipratropium 0.5 MG/2.5ML nebule IH PRN (13:30)
[2018-10-19 18:00] VITALS: BP 155/91
--- NOTE | 2018-10-19 18:36 | NUR ---
Problems reprioritized. Patient report given, questions answered & plan of care reviewed with DAVION Ordaz.
--- NOTE | 2018-10-19 18:45 | NUR ---
Patient in room [facility]. I have received report from DAVION Naylor and had the opportunity to ask questions and assume patient care.
[2018-10-19] MEDS: cefepime inj. 0.5 GM in normal saline 100ml IV soln 100 ML IV SCH (20:57)
[2018-10-19] MEDS: LORazepam 2 mg/ml vial IV PRN (23:24)
[2018-10-20] VITALS: BP 167/86
--- NOTE | 2018-10-20 00:16 | NUR ---
PAGER ID: [phone] MESSAGE: Patient Sakshi Saunders in room 359A is experiencing severe SOB with labored breathing. Lung sounds are course and congestive. HR is too high for PRN breathing tx at 134. O2 saturation is WNL at 91%. SURG Susham [id number]
[2018-10-20 00:51] LABS: ABG BASE EXCESS -0.5 mmol/L (-2.0-3.0); ABG HCO3 23.6 mmol/L (22.0-26.0); ABG PCO2 (T) 36.3 mmHg (32.0-45.0); ABG PH (T) 7.429 (7.350-7.450); ABG PO2 (T) 58.4 mmHg (83-108); ALLEN'S TEST Positive; FCOHb 0.3 % (0.5-1.5); FLOW 2 L/min; FMetHb 0.3 % (0.3-1.12); FO2Hb 89.5 % (94-100); PATIENT TEMPERATURE 36.7; TOTAL HEMOGLOBIN 10.2 G/dl (12.0-16.0)
[2018-10-20] MEDS ORDERED: furosemide 20 MG/2 ML vial IV ONE (01:00)
[2018-10-20 01:23] LABS: BASOPHILS % (AUTO) 0.3 % (0-1); EOSINOPHILS % (AUTO) 0.4 % (0-6); HEMATOCRIT 28.2 % (35.0-45.0); HEMOGLOBIN 9.4 g/dl (12.0-16.0); LYMPHOCYTES # (AUTO) 0.4 X10'3 (1.1-4.8); LYMPHOCYTES % (AUTO) 3.3 % (21-51); MEAN CORPUSCULAR HEMOGLOBIN 25.9 PG (27.0-31.0); MEAN CORPUSCULAR HGB CONC 33.4 g/dL (33.0-36.5); MEAN CORPUSCULAR VOLUME 77.3 FL (78-98); MEAN PLATELET VOLUME 7.8 FL (7.4-10.4); MONOCYTES # (AUTO) 0.1 X10'3 (0-0.9); MONOCYTES % (AUTO) 0.9 % (2-12); NEUTROPHILS % (AUTO) 95.1 % (42-75); PLATELET COUNT 267 X10'3 (140-440); RED BLOOD COUNT 3.64 X10'6 (4.20-5.60); RED CELL DISTRIBUTION WIDTH 17.3 % (11.5-14.5); WHITE BLOOD COUNT 11.5 X10'3 (4.5-11.0)
[2018-10-20 01:35] LABS: ALANINE AMINOTRANSFERASE 24 U/L (12-78); ALBUMIN 1.8 G/DL (3.4-5.0); ALBUMIN/GLOBULIN RATIO 0.5 (1.1-1.5); ALKALINE PHOSPHATASE 92 IU/L (46-116); ANION GAP 9 (8-16); ASPARTATE AMINO TRANSFERASE 22 U/L (10-37); BILIRUBIN,TOTAL 0.2 MG/DL (0.1-1.0); BLOOD UREA NITROGEN 51 MG/DL (7-18); BUN/CREATININE RATIO 36.4 (6.6-38.0); CALCIUM 8.2 MG/DL (8.5-10.1); CHLORIDE 109 MMOL/L (99-107); GLUCOSE 113 MG/DL (70-104); POTASSIUM 3.9 MMOL/L (3.5-5.1); SODIUM 143 MMOL/L (135-145); TOTAL CARBON DIOXIDE 24.7 MMOL/L (24-32); TOTAL PROTEIN 5.6 G/DL (6.4-8.2); eGFR 37 ML/MIN
[2018-10-20 01:39] LABS: MAGNESIUM 1.5 MG/DL (1.5-2.4); TROPONIN I 0.04 NG/ML (0.0-0.05)
--- NOTE | 2018-10-20 02:24 | NUR ---
PAGER ID: [phone] MESSAGE: Patient Sakshi Saunders in room 3012B has refused the BiPAP and still experiencing labored breathing though HR has improved. U Sushma [id number]
[2018-10-20] MEDS: morphine 4 MG/ML inj SYRINge IV PRN (02:51)
[2018-10-20 03:00] VITALS: BP 131/115
[2018-10-20 03:15] LABS: TOTAL CELLS COUNTED 100
[2018-10-20 03:16] LABS: ANISOCYTOSIS 1+; HYPOCHROMASIA 1+; MICROCYTOSIS 1+; PLATELET ESTIMATE NORMAL; POLYCHROMASIA FEW; TOXIC GRANULATION 1+
[2018-10-20] MEDS ORDERED: LORazepam 2 mg/ml vial IV ONE (04:50)
--- NOTE | 2018-10-20 04:57 | NUR ---
MD paged due to patient continuing to fight the bipap and try to remove it despite having sitter at bedside. Pt already had order for IV Ativan but the next PRN dose was not available for another 3 hours. MD did not return page so called her cell phone #. Received orders for a one time dose of 0.5mg Ativan IV & restraints. Sitter was already present at bedside, education provided on what signs to watch for and how to react. Will continue to monitor
--- NOTE | 2018-10-20 05:15 | NUR ---
Newly placed IV was observed to be leaking. Line dressing changed as intervention.
--- NOTE | 2018-10-20 05:45 | NUR ---
Dr. Cameron okayed discontinue BiPAP on basis of most recent ABG results WNL. Restraints were also discontinued.
[2018-10-20 05:51] LABS: ABG BASE EXCESS -0.2 mmol/L (-2.0-3.0); ABG HCO3 23.8 mmol/L (22.0-26.0); ABG OXYGEN SATURATION 92.2 % (95-98); ABG PCO2 (T) 36.1 mmHg (32.0-45.0); ABG PH (T) 7.436 (7.350-7.450); ABG PO2 (T) 68.2 mmHg (83-108); ALLEN'S TEST Positive; FCOHb 0.3 % (0.5-1.5); FMetHb 0.2 % (0.3-1.12); FO2Hb 91.7 % (94-100); MINUTE VOLUME 21 L/min; PATIENT TEMPERATURE 36.9; RESPIRATORY RATE 16 b/min; RESPIRATORY RATE (OBSERVED) 27 b/min; TOTAL HEMOGLOBIN 10.4 G/dl (12.0-16.0)
--- NOTE | 2018-10-20 06:30 | NUR ---
Patient in room [facility] 3023. I have received report from DAVION Ordaz and had the opportunity to ask questions and assume patient care.
--- NOTE | 2018-10-20 06:45 | NUR ---
Problems reprioritized. Patient report given, questions answered & plan of care reviewed with DAVION Templeton.
[2018-10-20 07:00] VITALS: BP 189/105
[2018-10-20] MEDS ORDERED: furosemide 40mg/4ml inj IV STA (07:22)
[2018-10-20] MEDS ORDERED: LORazepam 2 mg/ml vial IM STA (07:27)
[2018-10-20] MEDS ORDERED: furosemide 40mg/4ml inj IM STA (07:33)
--- NOTE | 2018-10-20 07:44 | NUR ---
While giving bedside report, sitter in the room reported that patient's IV was bleeding. IV was observed to be infiltrated and bleeding. IV was discontinued and coband was placed. Patient then began desating. Rapid was called. Charge nurse, ICU charge nurse, staff nurse, and RT intervened. Addendum: 10/20/18 at 0752 by Sun Cornell RN Family was then notified of current patient status and asked to come to the hospital. Night Hospitalist was also notified and stated they would notify day Hospitalist. Night and day charge nurses were also at bedside as well as night and day assigned staff RNs.
[2018-10-20] MEDS ORDERED: methylPREDNISolone sod succ/PF 40mg inj. IV SCH (08:00)
[2018-10-20] MEDS: diltiazem 30mg tablet PO SCH ×2 (08:00→19:19)
[2018-10-20] MEDS: sertraline 50mg tablet PO SCH (08:00)
[2018-10-20] MEDS ORDERED: morphine 4 MG/ML inj SYRINge IV PRN (08:45)
[2018-10-20] MEDS ORDERED: morphine 4 MG/ML inj SYRINge IM ONE (08:45)
--- NOTE | 2018-10-20 12:09 | NUR ---
PAGER ID: [phone] MESSAGE: [phone] pt Ehn. Unable to obtain upper extremity IV access. Patient pulling at arms. May we have an alternate site IV or switch to liquid morphine, per pharmacy we carry it for comfort care. Thank you - Yokasta [phone]
[2018-10-20] MEDS: morphine 10mg/0.5ml (conc. morphine) oral syringe PO PRN ×4 (12:31→22:57)
[2018-10-20] MEDS: LORazepam 2 mg/ml vial IV PRN ×2 (14:52→20:42)
--- NOTE | 2018-10-20 18:31 | NUR ---
Patient in room PCU 3022. I have received report from Yokasta RICARDO and had the opportunity to ask questions and assume patient care.
--- NOTE | 2018-10-20 18:31 | NUR ---
family at bedside including son who is also a patient here. family requesting pain meds, Yokasta Carver gave
--- NOTE | 2018-10-20 18:36 | NUR ---
Problems reprioritized. Patient report given, questions answered & plan of care reviewed with DAVION Wagoner.
[2018-10-21] MEDS: LORazepam 2 mg/ml vial IV PRN ×3 (00:50→12:05)
[2018-10-21] MEDS: morphine 10mg/0.5ml (conc. morphine) oral syringe PO PRN ×5 (05:46→16:52)
--- NOTE | 2018-10-21 06:27 | NUR ---
Patient in room PCU 3022. I have received report from DAVION Wagoner and had the opportunity to ask questions and assume patient care.
--- NOTE | 2018-10-21 06:53 | NUR ---
Problems reprioritized. Patient report given, questions answered & plan of care reviewed with MAKEDA RICARDO.
--- NOTE | 2018-10-21 10:10 | NUR ---
Pt has been made DNR w/ comfort care. [facility] 10/18. Will continue to follow per protocol. Addendum: 10/21/18 at [address] Amended: Links added.
[2018-10-21 11:00] VITALS: BP 137/74
--- NOTE | 2018-10-21 11:24 | NUR ---
Family refused VS Addendum: 10/21/18 at 1124 by Maria G Soriano RN Amended: Links added.
--- NOTE | 2018-10-21 18:05 | NUR ---
Report to DAVION Wagoner
[2018-10-21] MEDS: diltiazem 30mg tablet PO SCH (18:57)
[2018-10-21] MEDS: sertraline 50mg tablet PO SCH (18:57)
--- NOTE | 2018-10-21 18:58 | NUR ---
Patient in room PCU 3022. I have received report from MAKEDA RICARDO and had the opportunity to ask questions and assume patient care.
--- NOTE | 2018-10-21 18:58 | NUR ---
PT RESTING COMFORTABLY, HR IN 120S, GOOD BP. RESPIRATIONS SLOW. OXYGEN SATS LOW. FAMILY AT BEDSIDE.
[2018-10-21 19:00] VITALS: BP 137/59
--- NOTE | 2018-10-21 19:45 | NUR ---
WAS CALLED BY FAMILY TO GIVE MEDS BUT PT IS CURRENTLY IN NO DISTRESS, RESPIRATIONS ABOUT 10. PT IN AGREEMENT WITH NO MEDS NEEDED AT THIS TIME. REASSURED FAMILY THAT WE WILL PROVIDE MEDS AT ANY SIGN OF DISTRESS. FAMILY DID ORAL CARE, PT MOVED MOUTH A LITTLE BUT DID NOT FIGHT OR STRUGGLE AND RESTED EASILY.
--- NOTE | 2018-10-22 00:08 | NUR ---
PT COMFORTABLE, DAUGHTERS SLEEPING AT BEDSIDE. SNORING RESPIRATIONS, 10 PER MINUTE. LAST O2 CHECK AT DAUGHTER REQUEST WAS 54%. FREQUESNT ROUNDING, RN NEAR BEDSIDE
--- NOTE | 2018-10-22 00:16 | NUR ---
RESPIRATIONS STOPPED. HEART STOPPED. DAUGHTERS AT BEDSIDE.
--- NOTE | 2018-10-22 00:16 | NUR ---
RN IS TO DOCUMENT YES TO ALL APPLICABLE AREAS Pronouncement of : 1. Time Physician Notified: 15 2. Date of :10/22/18 3. Time of : 15 4. DNR/Withdraw life support documented:yes comfort care 5. Monitor strip has been placed on chart:yes 6. Assessment process is of one-minute duration and includes following criteria: a) Patient is unresponsive to all stimuli: y b) Pupils fixed and non-reactive:y c) Auscultation of precordium reveals absence of heart tones:y d) Auscultation of lungs reveals absence of breath sounds:y e) Absence of blood pressure / all vital signs:y f) QRS complexes are not present on monitor / EKG strip:asystole g) Pacer spikes without capture:n/a 4. Comments:
--- NOTE | 2018-10-22 01:33 | NUR ---
family still with patient, will let staff know when ready
--- NOTE | 2018-10-22 02:51 | NUR ---
pt cleaned, court removed, iv dc. waiting for son to wake up so he can be informed of her passing and given the choice to see her if he wants. rings with daughter. bottom dentures in pt mouth, top dentures would not stay in and are in the cup on bedside table still. attempted to locate denture paste to put top teeth in at family request.
--- NOTE | 2018-10-22 05:24 | NUR ---
dentures being sent with patient to [facility]. Daughter Fabby has rings and any other belongings in the room. Son has been told that she passed and declined to see her. [facility] has been notified for pickup
--- NOTE | 2018-10-22 05:55 | NUR ---
blairs here for pickup
== END 2018-10-22 05:52 | disposition expired | DRG 871 ==
LOC: ER 20:25 → SUR 3N 10-15 01:31 → CMPBEDREQ 10-15 01:39 → SUR 3N 10-18 07:13 → PCU 3S 10-20 01:40
PROVIDERS: ADMIT Family Medicine; ATTEND Internal Medicine
PROC: 5A09357 Assistance with Respiratory Ventilation, Less than 24 Consecutive Hours, Continuous Positive Airway Pressure (ICD-10-PCS; principal; 2018-10-20)
DX: A41.9 Sepsis, unspecified organism (principal); J96.20 Acute and chronic respiratory failure, unspecified whether with hypoxia or hypercapnia; J18.9 Pneumonia, unspecified organism; G93.41 Metabolic encephalopathy; E43 Unspecified severe protein-calorie malnutrition; J44.1 Chronic obstructive pulmonary disease with (acute) exacerbation; J44.0 Chronic obstructive pulmonary disease with (acute) lower respiratory infection; I13.0 Hypertensive heart and chronic kidney disease with heart failure and stage 1 through stage 4 chronic kidney disease, or unspecified chronic kidney disease; N17.9 Acute kidney failure, unspecified; K56.609 Unspecified intestinal obstruction, unspecified as to partial versus complete obstruction; N13.6 Pyonephrosis; E87.5 Hyperkalemia; N18.9 Chronic kidney disease, unspecified; I50.9 Heart failure, unspecified; R62.7 Adult failure to thrive; N18.3 Chronic kidney disease, stage 3 (moderate); Z66 Do not resuscitate; F17.210 Nicotine dependence, cigarettes, uncomplicated; Y95 Nosocomial condition; Z80.0 Family history of malignant neoplasm of digestive organs; Z80.1 Family history of malignant neoplasm of trachea, bronchus and lung; Z80.6 Family history of leukemia; Z82.5 Family history of asthma and other chronic lower respiratory diseases; Z85.01 Personal history of malignant neoplasm of esophagus; Z85.048 Personal history of other malignant neoplasm of rectum, rectosigmoid junction, and anus; Z85.118 Personal history of other malignant neoplasm of bronchus and lung; Z85.43 Personal history of malignant neoplasm of ovary; Z90.49 Acquired absence of other specified parts of digestive tract; Z93.3 Colostomy status; Z68.22 Body mass index [BMI] 22.0-22.9, adult; Z88.0 Allergy status to penicillin; Z79.899 Other long term (current) drug therapy
CPT/HCPCS: 36415; 36600; 70450; 71045; 71250; 74176; 80053; 80202; 81001; 82803; 83735; 83880; 84484; 85018; 85025; 85610; 85730; 87040; 87070; 87088; 93005; 94640; 94660; 94760; 96365; 96366; 96368; 97110; 97161; 97530; 99285; G0378; J0692; J1644; J1650; J1940; J2060; J2270; J2543; J2920; J2930; J3370; J3475; J7030; J7614; Q9963